=== PATIENT | male | born 1995 | race Caucasian/White ===

== ENCOUNTER 2019-05-03 | Emergency (ER) | payer OTHER | END 2019-05-03 05:03 | disposition home or self-care (01) | CPT/HCPCS: 72125; 70450; 90715; 99283; 12002; 90471; J2001 ==

== ENCOUNTER → 2020-12-08 | Outpatient (CLI) | payer BC | END | disposition home or self-care (01) | LOC: LABMAIN 21:32 | PROVIDERS: ATTEND Physician Assistant | DX: Z20.828 Contact with and (suspected) exposure to other viral communicable diseases (principal) | CPT/HCPCS: 87635 ==